=== PATIENT | male | born 1965 | race Hispanic/Latino ===

== ENCOUNTER 2017-08-21 12:47 | Emergency (ER) | payer OTHER ==
--- NOTE | 2017-08-21 13:33 | RAD ---
LEFT FEMUR TWO VIEWS: History: Fall. Pain. Comparison: None. FINDINGS: No fracture. No cortical irregularity or periosteal reaction. IMPRESSION: No fracture. POS: JULIANNA
--- NOTE | 2017-08-21 13:42 | RAD ---
SINGLE AP VIEW OF LEFT HIP: Date: 08/21/17 INDICATION: Left leg pain after falling. FINDINGS: No acute fracture or subluxation is evident. There are degenerative changes of the left hip. IMPRESSION: No acute osseous abnormality. POS: JULIANNA
== END 2017-08-21 13:49 | disposition home or self-care (01) ==
LOC: ERS 12:47
DX: S70.12XA Contusion of left thigh, initial encounter (principal); E78.5 Hyperlipidemia, unspecified; I10 Essential (primary) hypertension; Z79.899 Other long term (current) drug therapy; W17.89XA Other fall from one level to another, initial encounter